=== PATIENT | female | born 1995 | race American Indian/Alaskan Native ===

== ENCOUNTER 2022-02-10 16:13 | Emergency (ER) | payer SELFPAY ==
[2022-02-10 16:34] VITALS: BP 115/65
[2022-02-10] MEDS ORDERED: ACETAMINOPHEN 500 MG TAB PO ONE (23:46)
[2022-02-10] MEDS ORDERED: IBUPROFEN 600 MG TAB PO ONE (23:46)
--- NOTE | 2022-02-11 01:08 | Emergency Department Report ---
ED Back Pain/Injury HPI - General Chief Complaint: Back Pain/Injury Stated Complaint: BACK PAIN Source: EMS Limitations: No Limitations - History of Present Illness Initial Comments: Patient is a 26-year-old -[place] female with no past medical history who presents to the ED with complaint of acute onset persistent nontraumatic mid posterior thoracic and low back pain for the last 2 days. Patient states the pain is persistent and worse with movement. Patient denies fall, traumatic injury, headache, chest pain or shortness of breath, nausea and vomiting, dysuria, urinary frequency and urgency, heavy lifting, abdominal pain, fever and chills or numbness and tingling or weakness of lower extremities bilaterally. MD Complaint: back pain -: Sudden, days(s) (2) Similar Symptoms Previously: No Place: home Radiation: none Severity: severe Severity scale (0 -10): 7 Quality: sharp, aching Consistency: constant Improves With: none Worsens With: movement Context: unknown Associated Symptoms: denies other symptoms. denies: confusion, weakness, chest pain, numbness, difficulty walking, cough, difficulty urinating, diaphoresis, constipation, headaches, abdominal pain, loss of appetite - Related Data Previous Rx's Medication Instructions Recorded Last Taken Type Baclofen 20 mg PO Q12H PRN #20 tab 02/11/22 Unknown Rx Naproxen 500 mg PO Q12H PRN #30 tab 02/11/22 Unknown Rx Allergies Allergy/AdvReac Type Severity Reaction Status Date / Time No Known Allergies Allergy Unverified 02/10/22 16:34 ED Review of Systems ROS: Stated complaint: BACK PAIN Other details as noted in HPI Constitutional: denies: chills, fever Eyes: denies: eye pain, eye discharge, vision change ENT: denies: ear pain, throat pain Respiratory: denies: cough, shortness of breath, wheezing Cardiovascular: denies: chest pain, palpitations Endocrine: no symptoms reported Gastrointestinal: denies: abdominal pain, nausea, vomiting, diarrhea Genitourinary: denies: urgency, dysuria, discharge Musculoskeletal: back pain (And posterior thoracic and low back pain), arthralgia. denies: joint swelling Skin: denies: rash, lesions Neurological: denies: headache, weakness, paresthesias Psychiatric: denies: anxiety, depression Hematological/Lymphatic: denies: easy bleeding, easy bruising ED Past Medical Hx - Medications Home Medications: Home Medications Medication Instructions Recorded Confirmed Last Taken Type Baclofen 20 mg PO Q12H PRN #20 tab 02/11/22 Unknown Rx Naproxen 500 mg PO Q12H PRN #30 tab 02/11/22 Unknown Rx ED Physical Exam - General Limitations: No Limitations General appearance: alert, in no apparent distress - Head Head exam: Present: atraumatic, normocephalic, normal inspection - Eye Eye exam: Present: normal appearance, PERRL, EOMI Pupils: Present: normal accommodation - ENT ENT exam: Present: normal exam, normal orophraynx, mucous membranes moist, TM's normal bilaterally, normal external ear exam - Neck Neck exam: Present: normal inspection, full ROM. Absent: tenderness, meningismus - Respiratory Respiratory exam: Present: normal lung sounds bilaterally. Absent: respiratory distress, wheezes, rales, rhonchi, chest wall tenderness, accessory muscle use, decreased breath sounds, prolonged expiratory - Cardiovascular Cardiovascular Exam: Present: regular rate, normal rhythm, normal heart sounds. Absent: systolic murmur, diastolic murmur, rubs, gallop - GI/Abdominal GI/Abdominal exam: Present: soft, normal bowel sounds. Absent: tenderness, guarding, rebound, rigid, hyperactive bowel sounds, hypoactive bowel sounds, organomegaly, mass, bruit, pulsatile mass - Extremities Exam Extremities exam: Present: normal inspection, full ROM, normal capillary refill. Absent: tenderness - Back Exam Back exam: Present: normal inspection, full ROM, tenderness (Palpable mid posterior thoracic and lumbosacral paraspinal musculoskeletal tenderness), musc le spasm, paraspinal tenderness. Absent: CVA tenderness (R), CVA tenderness (L), vertebral tenderness - Neurological Exam Neurological exam: Present: alert, oriented X3, CN II-XII intact, normal gait, reflexes normal - Psychiatric Psychiatric exam: Present: normal affect, normal mood - Skin Skin exam: Present: warm, dry, intact, normal color. Absent: rash ED Course Vital Signs 02/10/22 16:33 Temperature 97 F L Pulse Rate 87 Respiratory 16 Rate Blood Pressure 115/65 [Right] O2 Sat by Pulse 100 Oximetry ED Medical Decision Making - Medical Decision Making This is a 26-year-old -[place] female with no past medical history who presents to the ED with complaint of acute onset persistent nontraumatic mid posterior thoracic and low back pain for the last 2 days. Patient states the pain is persistent and worse with movement. In the ED, patient is alert and oriented x3 and is not in any distress. Patient was treated for pain in the ED. On reevaluation, patient's pain is well controlled medication. Discharged home on medication and advised to follow-up with her primary care physician in 7 to 10 days for reevaluation or return to the ED if symptoms get worse. - Differential Diagnosis Muscle spasm; muscle strain Critical care attestation.: If time is entered above; I have spent that time in minutes in the direct care of this critically ill patient, excluding procedure time. ED Disposition Clinical Impression: Spasm of thoracic back muscle, Strain of muscle and tendon of back wall of thorax, initial encounter Disposition: HOME / SELF CARE / HOMELESS Is pt being admited?: No Does the pt Need Aspirin: No Condition: Stable Instructions: Muscle Cramps and Spasms, [id number], Muscle Strain, Easy -to-Read, Thoracic Strain Rehab-SportsMed Additional Instructions: Your symptoms are likely due to muscle spasm and muscle strain of your upper and low back. Therefore take medication with food, drink plenty of fluids and follow-up with your primary care physician in 7 to 10 days for reevaluation. Return to the ED immediately if symptoms get worse. Prescriptions: Baclofen 20 mg PO Q12H PRN #20 tab PRN Reason: Muscle Spasm Naproxen 500 mg PO Q12H PRN #30 tab PRN Reason: Pain , Severe (7-10) Referrals: [facility] [Provider Group] - 7-10 days Time of Disposition: 01:12 Print Language: PAK[place]
== END 2022-02-11 01:57 | disposition home or self-care (01) ==
LOC: ED 16:13
DX: S29.012A Strain of muscle and tendon of back wall of thorax, initial encounter (principal); M62.830 Muscle spasm of back; M54.50 Low back pain, unspecified; X58.XXXA Exposure to other specified factors, initial encounter; Y93.89 Activity, other specified; Y92.89 Other specified places as the place of occurrence of the external cause; Y99.8 Other external cause status
CPT/HCPCS: 99283

== ENCOUNTER 2022-02-11 09:43 | Emergency (ER) | payer SELFPAY ==
[2022-02-11 09:48] VITALS: BP 155/72
--- NOTE | 2022-02-11 15:44 | Emergency Department Report ---
ED Back Pain/Injury HPI - General Chief Complaint: Back Pain/Injury Stated Complaint: BACK PAIN/TRAUMATIC Time Seen by Provider: 02/11/22 14:26 Source: patient, EMS Limitations: No Limitations - History of Present Illness Initial Comments: 26-year-old female Derrick emerged from complaining of continued lower back pain since being seen earlier today. She was discharged from the emergency department this morning and provided with a prescription which she has yet to feel. Transportation attempted to take her to her location as she was referred back from the [place] to the emergency department seeking to be replaced right now. While here in the waiting room she states her pain continue to nag her so she is rechecked into the emergency department primarily complaining of hunger requesting to eat a meal. She reports no change in her symptoms. No worsening symptoms, no new injury. She reports no loss of bowel bladder, no saddle paresthesia. MD Complaint: back pain Similar Symptoms Previously: Yes Consistency: constant Improves With: none - Related Data Previous Rx's Medication Instructions Recorded Last Taken Type Baclofen 20 mg PO Q12H PRN #20 tab 02/11/22 Unknown Rx Naproxen 500 mg PO Q12H PRN #30 tab 02/11/22 Unknown Rx methOCARBAMOL [Robaxin TAB] 750 mg PO BID #20 tab 02/11/22 Unknown Rx Allergies Allergy/AdvReac Type Severity Reaction Status Date / Time No Known Allergies Allergy Verified 02/11/22 09:48 ED Review of Systems ROS: Stated complaint: BACK PAIN/TRAUMATIC Other details as noted in HPI Comment: All other systems reviewed and negative ED Past Medical Hx - Medications Home Medications: Home Medications Medication Instructions Recorded Confirmed Last Taken Type Baclofen 20 mg PO Q12H PRN #20 tab 02/11/22 Unknown Rx Naproxen 500 mg PO Q12H PRN #30 tab 02/11/22 Unknown Rx methOCARBAMOL [Robaxin TAB] 750 mg PO BID #20 tab 02/11/22 Unknown Rx ED Physical Exam - General Limitations: No Limitations General appearance: alert, in no apparent distress - Head Head exam: Present: atraumatic, normocephalic - Eye Eye exam: Present: normal appearance - ENT ENT exam: Present: mucous membranes moist - Neck Neck exam: Present: normal inspection - Respiratory Respiratory exam: Present: normal lung sounds bilaterally. Absent: respiratory distress - Cardiovascular Cardiovascular Exam: Present: regular rate, normal rhythm. Absent: systolic murmur, diastolic murmur, rubs, gallop - GI/Abdominal GI/Abdominal exam: Present: soft, normal bowel sounds - Extremities Exam Extremities exam: Present: normal inspection - Back Exam Back exam: Present: normal inspection, other (Full range of motion examination able to flex and stand without any any difficulty gait coordinated and smooth no tenderness on palpation to the back. No CVA tenderness as well. No abdominal tenderness on palpation). Absent: CVA tenderness (R), CVA tenderness (L), paraspinal tenderness, vertebral tenderness - Neurological Exam Neurological exam: Present: alert, oriented X3 - Psychiatric Psychiatric exam: Present: normal affect, normal mood - Skin Skin exam: Present: warm, dry, intact, normal color. Absent: rash ED Course Vital Signs 02/11/22 09:46 Pulse Rate 74 Blood Pressure 155/72 [Left] O2 Sat by Pulse 98 Oximetry Critical care attestation.: If time is entered above; I have spent that time in minutes in the direct care of this critically ill patient, excluding procedure time. ED Disposition Clinical Impression: Back pain Disposition: 01 HOME / SELF CARE / HOMELESS Is pt being admited?: No Does the pt Need Aspirin: No Condition: Stable Instructions: Acute Back Pain, Adult Prescriptions: methOCARBAMOL [Robaxin TAB] 750 mg PO BID #20 tab Referrals: [facility] [Provider Group] - 3-5 Days [facility] [Provider Group] - 3-5 Days
== END 2022-02-11 15:30 | disposition home or self-care (01) ==
LOC: ED 09:43
DX: M54.50 Low back pain, unspecified (principal)
CPT/HCPCS: 99283